=== PATIENT | female | born 1970 | race Caucasian/White ===

== ENCOUNTER 2020-01-27 10:45 | Outpatient (CLI) | payer BC, SELFPAY ==
--- NOTE | ~2020-01-27 | XR_ITS ---
EXAMINATION:XR_[id number]_CR DATE: 01/27/2020 11:14 INDICATION: Neck pain TECHNIQUE: AP, lateral, lateral swimmers and odontoid views of the cervical spine are provided. COMPARISON: None FINDINGS: There are 2 mm of anterolisthesis of C5 on C6. The odontoid is intact. No fracture is ident ified. The vertebral body heights are normal. There is mild loss of intervertebral disc space height at C6-7 and C7-T1. Prevertebral soft tissues are normal. Degenerative anterior endplate osteophytes a re seen at C6-7. There is mild facet and uncovertebral joint osteoarthritis throughout the cervical s pine. IMPRESSION: 1. Mild cervical spondylosis without acute abnormality. Reviewed, dictated and finalized at location B.
--- NOTE | ~2020-01-27 | XR_ITS ---
EXAMINATION: XR shoulder RT min 2V DATE: 01/27/2020 11:14 INDICATION: Right shoulder pain. TECHNIQUE: 4 views of right shoulder were obtained. COMPARISON: None. FINDINGS: Bone alignment is normal. No fracture. There is mild osteoarthritis of acromioclavicular ivania int. Glenohumeral joint is normal. IMPRESSION: 1. Mild right acromioclavicular joint osteoarthritis. Reviewed, dictated and finalized at location A.
== END 2020-01-27 10:46 | disposition home or self-care (01) ==
PROVIDERS: PCP Family Medicine; Visit Provider Nurse Practitioner Family
DX: M47.892 Other spondylosis, cervical region (principal); M19.011 Primary osteoarthritis, right shoulder
CPT/HCPCS: 72040; 73030

== ENCOUNTER → 2021-12-21 09:09 | Outpatient (CLI) | payer BC, SELFPAY ==
--- NOTE | ~2021-12-21 | XR_ITS ---
EXAMINATION: XR chest 2V Exam Date/Time: 12/21/2021 9:38 CDT HISTORY: J40 - Bronchitis, not specified as acute or chronic Comparison: None available. RESULT: Lines, tubes, and devices: None. Lungs and pleura: Subtle diffuse reticular and upper lung micronodular pattern. Cardiomediastinal silhouette: Unremarkable cardiomediastinal silhouette. Other: No acute osseous or upper abdominal finding. IMPRESSION: Pulmonary opacities may reflect bronchiolitis, as can be seen with atypical infection, asthma, and sm all airways disease. Reviewed, dictated and finalized at location K. IMPRESSION: Pulmonary opacities may reflect bronchiolitis, as can be seen with atypical inf ection, asthma, and small airways disease.
== END ==
PROVIDERS: PCP Family Medicine; Visit Provider Nurse Practitioner Family
DX: J40 Bronchitis, not specified as acute or chronic (principal); R91.8 Other nonspecific abnormal finding of lung field
CPT/HCPCS: 71046

== ENCOUNTER → 2022-05-20 10:15 | Outpatient (CLI) | payer BC, SELFPAY ==
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
== END ==
PROVIDERS: PCP Family Medicine; Visit Provider Physician Assistant Medical
DX: M25.521 Pain in right elbow (principal)
CPT/HCPCS: 73070

== ENCOUNTER 2022-09-22 15:00 | Outpatient (RCR) | payer BC, OTHER, SELFPAY ==
--- NOTE | 2022-08-22 08:43 | OTOPEVAL1 ---
Assessment and note entered by Azar Hardy, OTR/Sagrario, CHT Evaluation Information Assessment Status Evaluation Diagnosis (R) lateral epicondylitis Onset 3-4 months Subjective Information Patient comes with dx of lateral epicondylitis on her right, dominant, UE. She had two steroid injections back in June with temporary relief. Reports intermittent pain at the lateral epicondyle and radiating pain down the forearm to the wrist. Reporting difficulty with writing and typing; has been favoring the left hand for heavier tasks. 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 Reported Pain Level Pain Score 0: Self Report Additional Pain Score Comments Pain increased to 2-3/10 with gross gripping tasks. Assessment OT Clinical Summary Patient referred to outpatient hand therapy with dx of lateral epicondylitis which has been affecting her ability to complete work tasks without pain. Skilled OT indicated for education on ergonomics and body mechanics, manual therapy, modalities, HEP instruction, and therapeutic exercise to facilitate optimal functional use of her right UE. May utilize splinting if more conservative treatment does not progress as expected. Plan of Care Interventions Therapeutic Exercise,Manual Therapy,Therapeutic Activities,Hot Pack/Cold Pack,Self-Care/Home Management,Check Out for Orthotic/Pr,Ultrasound, Paraffin OT Services Indicated Yes Treatment Frequency and 1x/week for 4 weeks Duration These treatments will address the objective and functional deficits as defined above. The patient will be advanced safely and appropriately in order for the patient to progress towards his/her prior level of function. Additional exercises will be introduced and as well as a comprehensive home exercise program upon discharge, if needed, ?to ensure carryover of functional gains achieved in the clinic. This treatment plan has been reviewed and agreement upon by the patient.
--- NOTE | 2022-09-22 15:41 | OTOPPROG ---
Assessment and note entered by Azar Hardy, OTR/L, CHT Evaluation Information Diagnosis (R) lateral epicondylitis Onset ~4 months Subjective Information Patient reports no longer having radiating pain down to the wrist. Pain is now intermittent, reporting no pain most of the time now. States she maybe has some discomfort for part of the day with heavier arm use. Reports no longer having pain with writing and typing. Reports no longer having to favor the left arm when doing heavier lifting. She continues to have (+) provocative testing (Cozen's, Maudsley's) for lateral epicondylitis. 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 Assessment OT Clinical Summary Patient referred to outpatient hand therapy with dx of lateral epicondylitis which has been affecting her ability to complete work tasks without pain. She has attended 5 therapy sessions and has made excellent progress. She continues to have some residual pain, now just localized to the lateral epicondyle, no longer radiating down to the wrist. She is able to use her hand/arm for more tasks without such high amounts of pain. She is currently independent with HEP. Will have her continue with HEP x3 weeks and call to see if additional therapy sessions are warranted at that time. Plan of Care Interventions Therapeutic Exercise,Manual Therapy,Therapeutic Activities,Hot Pack/Cold Pack,Self-Care/Home Management,Check Out for Orthotic/Pr,Ultrasound, Paraffin OT Services Indicated Yes Treatment Frequency and 0-1x/week x3 weeks Duration These treatments will address the objective and functional deficits as defined above. The patient will be advanced safely and appropriately in order for the patient to progress towards his/her prior level of function. Additional exercises will be introduced and as well as a comprehensive home exercise program upon discharge, if needed, ?to ensure carryover of functional gains achieved in the clinic. This treatment plan has been reviewed and agreement upon by the patient.
--- NOTE | 2022-10-10 10:18 | OTOPDC ---
Assessment and note entered by Azar Hardy, KYE/Sagrario, CHT Assessment OT Clinical Summary Patient referred to outpatient hand therapy with dx of lateral epicondylitis which has been affecting her ability to complete work tasks without pain. She has attended 5 therapy sessions and has made excellent progress. We assessed her progress 3 weeks ago and she was feeling ready to go on her own, but no ready to be discharged yet just in case . Had her complete her HEP x3 weeks and I called her today. She reports she is doing great and is ready to be discharged. D/C today with goals met. Thank you for this referral. Plan of Care OT Services Indicated No
== END 2022-11-07 12:43 | disposition home or self-care (01) ==
LOC: ANHOT 15:00
PROVIDERS: PCP Family Medicine; Visit Provider Nurse Practitioner
DX: M77.11 Lateral epicondylitis, right elbow (principal)
CPT/HCPCS: 97018; 97035; 97110; 97140; 97165

== ENCOUNTER 2025-01-15 14:53 | Outpatient (CLI) | payer OTHER, SELFPAY ==
--- NOTE | ~2025-01-15 | MR_ITS ---
EXAMINATION: MR foot RT wo/w con DATE: 01/15/2025 16:15 INDICATION: Neuroma at the right foot TECHNIQUE: Magnetic resonance imaging (MRI) of the right fore/mid foot was performed without and with 20 mL Multihance intravenous contrast. Sequences included sagittal T1-weighted FSE, sagittal fluid sensitive FSE STIR, coronal PD-weighted FS FSE, coronal T1-weighted FSE, axial T2-weighted FS FSE, ax ial T1-weighted FSE, axial T1-weighted FS FSE and postcontrast axial, sagittal and coronal T1-weighte d FS FSE. COMPARISON: None FINDINGS: Bone alignment is normal with normal marrow signal throughout. No fracture, reactive edema, erosions or pathologic marrow replacing process. Mild osteoarthritis at the first metatarsophalangeal and the second and fourth tarsal metatarsal joints. The Lisfranc ligament complex as well as the collateral l igament complex at the metatarsophalangeal and interphalangeal joints are normal. The visualized port ions of the flexor and extensor tendons are normal. Minimal amount fluid at the intermetatarsal bursa between the heads of the first, second and third metatarsals which remains within normal limits. No joint effusions, tenosynovitis or other abnormal fluid collections. No evident Montoya's neuroma or ot her abnormal masses identified. IMPRESSION: 1. Small amount of fluid within the intermetatarsal bursae between the heads of the first second thir d metatarsals which remains within normal limits. No evidence of Montoya's neuroma or other abnormal m asses identified. 2. Mild osteoarthritis at the first metatarsophalangeal the second fourth tarsal metatarsal joints. N o acute osseous abnormality. Reviewed, dictated and finalized at location A. IMPRESSION: 1. Small amount of fluid within the intermetatarsal bursae between the heads of the first second third metatarsals which remains within normal limits. No evid ence of Montoya's neuroma or other abnormal masses identified. 2. Mild osteoarthritis at the first metatarsophalangeal the second fourth tarsa l metatarsal joints. No acute osseous abnormality.
== END 2025-01-15 14:54 | disposition home or self-care (01) ==
LOC: MICIMG 14:53
PROVIDERS: PCP Family Medicine; Visit Provider Nurse Practitioner
DX: D36.13 Benign neoplasm of peripheral nerves and autonomic nervous system of lower limb, including hip (principal)
CPT/HCPCS: 73720; A9577